=== PATIENT | female | born 1990 | race African-American/Black ===

== ENCOUNTER 2019-01-22 12:43 | Observation (INO) | payer MEDICAID ==
[~2019-01-22] VITALS: Ht 165.1 cm; Wt 78.5 kg
[~2019-01-22 12:43] MED LIST: DEPO PROVERA
== END 2019-01-22 15:10 | disposition home or self-care (01) ==
LOC: 8 EST LDRP 12:43
PROVIDERS: ADMIT Specialist; ATTEND Specialist
DX: O62.9 Abnormality of forces of labor, unspecified (principal); O21.2 Late vomiting of pregnancy; O26.893 Other specified pregnancy related conditions, third trimester; R05 Cough; Z3A.33 33 weeks gestation of pregnancy
CPT/HCPCS: 76805; 99281; G0378

== ENCOUNTER 2020-09-21 21:05 | Emergency (ER) | payer OTHER ==
[~2020-09-21] VITALS: Ht 167.6 cm; Wt 73.0 kg
[2020-09-21] MEDS ORDERED: METHYLPREDNISOLONE SOD SUCC 125 MG/2 ML VIAL IM STA (22:46)
[2020-09-22] MEDS ORDERED: IBUPROFEN 600MG TABLET PO STA (00:05)
[2020-09-22 01:45] VITALS: BP 128/84
== END 2020-09-22 01:46 | disposition home or self-care (01) ==
LOC: ER 21:05
DX: J45.901 Unspecified asthma with (acute) exacerbation (principal); Z91.010 Allergy to peanuts; Z91.018 Allergy to other foods
CPT/HCPCS: 71045; 93005; 99283; J2930